=== PATIENT | female | born 1985 | race Caucasian/White ===

== ENCOUNTER → 2016-10-06 | Outpatient (CLI) | payer BC ==
[~2016-10-06] MED LIST: DOCO1CAP10 PO; GLC/500 PO; PRENTAB26 PO
== END | disposition home or self-care (01) ==
LOC: C.LAB 07:04
PROVIDERS: ATTEND Obstetrics & Gynecology
DX: Z32.00 Encounter for pregnancy test, result unknown (principal)

== ENCOUNTER → 2016-10-08 | Outpatient (CLI) | payer BC | END | disposition home or self-care (01) | LOC: C.LAB 07:10 | PROVIDERS: ATTEND Obstetrics & Gynecology | DX: O09.00 Supervision of pregnancy with history of infertility, unspecified trimester (principal) ==

== ENCOUNTER 2016-10-29 19:05 | Emergency (ER) | payer BC, OTHER ==
[~2016-10-29] VITALS: Ht 160 cm; Wt 85.0 kg
[~2016-10-29 19:05] MED LIST changes: -DOCO1CAP10 PO; -GLC/500 PO
[2016-10-29 19:11] VITALS: Ht 160 cm; Wt 85.0 kg
[2016-10-29] MEDS ORDERED: GLC/500 PO (19:23)
[2016-10-29] MEDS ORDERED: DOCO1CAP10 PO (19:24)
[2016-10-29] MEDS ORDERED: SODIUM CHLORIDE 0.9% 1000ML 500 ML IV STA (19:37)
[2016-10-29] MEDS ORDERED: SODIUM CHLORIDE 0.9% 1000ML 1,000 ML IV STA (19:37)
[2016-10-29] MEDS ORDERED: OPTIRAY 320 IV PRN (19:45)
[2016-10-29 20:00] VITALS: O2SAT 100
--- NOTE | 2016-10-29 20:04 | EMERGENCY ROOM VISIT NOTE ---
History Report prepared by Saran: Madie Teague Under the Supervision of: Dr. Gustavo Werner M.D. First contact with patient: 19:24 Chief Complaint: CHEST PAIN Stated Complaint: CHEST PAIN,NUMB LIPS,ARMS,TIGHT THROAT History of Present Illness The patient is a 31 year old female who presents to the Emergency Room with complaints of resolved mid-right chest pain occurring about 5 hours ago. She had the onset of her pain while sitting at her desk at work. When she returned home, she had an onset of mid-right back pain. She describes it to be a shooting pain from her chest. The pain lasted for about 15 minutes. She then had an onset of dry mouth, slurred speech, lip numbness, tachycardia, and right sided numbness. The right sided numbness lasted for about 10 minutes. The patient currently denies any pain. She currently complains of lip numbness, right sided numbness of tongue, and weakness in her right side of her body. She has been at baseline for the past few days. The patient is currently 2 months . This is her second . She has one child. She returned from [facility] about a week ago. She denies fever, headache, shortness of breath, vomiting, urinary symptoms, or any other complaints. She denies any history of heart disease, lung disease, and blood clots. She denies any family history of blood clots. Source of History: patient Onset: about 5 hours ago Position: chest (mid-right) Symptom Intensity: No pain Quality: other (shooting pain) Timing: resolved Associated Symptoms: + back pain, + numbness, + weakness, No SOB, No fevers , No headache, No urinary symptoms, No vomiting Review of Systems See HPI for pertinent positives & negatives. A total of 10 systems reviewed and were otherwise negative. Past Medical & Surgical Medical Problems: (1) 39 weeks gestation of (2) Chronic hypertension in obstetric context in third trimester (3) Left arm pain (4) Family History Patient reports no known family medical history. Social History Smoking Status: Never Smoker Marital Status: Occupation Status: employed Current/Historical Medications Scheduled Docosahexaenoic Acid (Dha), 200 MG PO DAILY Metformin Hcl (Glucophage), 500 MG PO TID Multivit/Min/Iron/Fol Ac/Pren ( Vitamin), 1 TAB PO DAILY Allergies Coded Allergies: No Known Allergies (Unverified , 10/29/16) Physical Exam Vital Signs Date Time Temp Pulse Resp B/P Pulse Ox O2 Delivery O2 Flow Rate FiO2 10/29/16 21:48 86 20 108/59 99 Room Air 10/29/16 20:00 100 Room Air 10/29/16 20:00 110 10/29/16 20:00 100 Room Air 10/29/16 19:11 120 16 135/75 100 Room Air Physical Exam GENERAL: Patient is in no acute distress. Slightly anxious. HEENT: No acute trauma, normocephalic atraumatic, mucous membranes moist, no nasal congestion, no scleral icterus. NECK: No stridor, no adenopathy, no meningismus, trachea is midline. Equal carotid upstrokes bilaterally. LUNGS: Clear to auscultation bilaterally, no wheeze, no rhonchi, breath sounds equal. HEART: Tachycardiac with a regular rhythm, no murmurs. ABDOMEN: Soft, nontender, bowel sounds positive, no hernias, no peritonitis. EXTREMITIES: No cyanosis or edema, full range of motion of all the joints without pain or difficulty, no signs for acute trauma. Equal and strong radial pulses bilaterally. NEUROLOGIC: Oriented x 3, no acute motor or sensory deficits, no focal weakness. SKIN: No rash, no jaundice, no diaphoresis. Medical Decision & Procedures ER Provider Diagnostic Interpretation: CT and US results as stated below per my review and radiologist interpretation: CT ANGIOGRAM OF THE CHEST CLINICAL HISTORY: Chest pain, leg swelling, recent car travel, possible DVT COMPARISON STUDY: No previous studies for comparison. TECHNIQUE: Following the IV administration of 92 mL of Optiray-320, CT angiogram of the thorax was performed from the thoracic inlet to the lung bases utilizing the pulmonary embolus protocol. Images are reviewed in the axial, sagittal, and coronal planes. IV contrast was administered without complication. MIP imaging was performed. CT DOSE: 441.90 mGy.cm FINDINGS: No pathologically enlarged axillary mediastinal or hilar lymph nodes were visualized. There was no evidence of thoracic aortic dilatation. There is slightly suboptimal pulmonary arterial opacification. There are no filling defects to indicate acute pulmonary embolism. No pleural effusions are visualized. There is respiratory motion artifact. There is no evidence of focal pulmonary consolidation. IMPRESSION: 1. Technically limited study secondary to respiratory motion artifact and slightly suboptimal pulmonary opacification. 2. No pulmonary emboli identified 3. No evidence of focal pulmonary consolidation Electronically signed by: Fortunato Houston M.D. 10/29/2016 9:32 PM Dictated Date/Time: 10/29/2016 9:28 PM ULTRASOUND VENOUS DOPPLER LWR EXT BILA CLINICAL HISTORY: Leg swelling. Recent car travel COMPARISON STUDY: No previous studies for comparison. FINDINGS: Real-time and color flow Doppler imaging were performed. Flow was seen within the femoral, popliteal and calf veins with no intraluminal thrombus demonstrated. The saphenous vein is patent. IMPRESSION: No evidence of lower extremity DVT. Electronically signed by: Fortunato Houston M.D. 10/29/2016 9:29 PM Dictated Date/Time: 10/29/2016 9:27 PM Laboratory Results 10/29/16 20:02 10/29/16 20:02 Test 10/29/16 20:02 10/29/16 20:12 Red Blood Count 4.13 M/uL (4.2-5.4) Mean Corpuscular Volume 88.6 fL (80-100) Mean Corpuscular Hemoglobin 30.0 pg (25-34) Mean Corpuscular Hemoglobin Concent 33.9 g/dl (32-36) RDW Standard Deviation 42.8 fL (36.4-46.3) RDW Coefficient of Variation 13.3 % (11.5-14.5) Mean Platelet Volume 9.7 fL (7.4-10.4) Prothrombin Time 9.8 SECONDS (9.0-12.0) Prothromb Time International Ratio 0.9 (0.9-1.1) Activated Partial Thromboplast Time 27.3 SECONDS (21.0-31.0) Partial Thromboplastin Ratio 1.1 Anion Gap 12.0 mmol/L (3-11) Est Creatinine Clear Calc Drug Dose 111.7 ml/min Estimated GFR () 123.4 Estimated GFR (Non- 106.4 BUN/Creatinine Ratio 12.8 (10-20) Calcium Level 9.1 mg/dl (8.5-10.1) Total Bilirubin 0.2 mg/dl (0.2-1) Aspartate Amino Transf (AST/SGOT) 15 U/L (15-37) Alanine Aminotransferase (ALT/SGPT) 33 U/L (12-78) Alkaline Phosphatase 85 U/L (45-117) Total Protein 7.7 gm/dl (6.4-8.2) Albumin 3.9 gm/dl (3.4-5.0) Globulin 3.8 gm/dl (2.5-4.0) Albumin/Globulin Ratio 1.0 (0.9-2) Bedside Troponin I 0.000 ng/ml (0-0.045) Laboratory results reviewed by me. Medications Administered Medications (Trade) Dose Ordered Sig/Adama Route Start Time Stop Time Status Last Admin Dose Admin Sodium Chloride (Nss 1000ml) 500 ml @ 999 mls/hr Q31M STAT IV 10/29/16 19:37 10/29/16 20:07 DC 10/29/16 21:45 999 MLS/HR ECG Indication: chest pain Rate (beats per minute): 125 Rhythm: sinus tachycardia Findings: no acute ischemic change, no ectopy, other (Nonspecific diffuse ST changes) ED Course 1923: The patient was evaluated in room C11B. A complete history and physical exam was performed. 1936: Sodium Chloride 1000 ml @ 200 mls/hr IV, Sodium Chloride 500 ml @ 999 mls/ hr IV 2156: Reevaluated the patient. Discussed results and discharge instructions: She verbalized understanding and agreement. The patient is ready for discharge. Medical Decision Differential diagnosis includes but is not limited to PE or aortic dissection, DVT, musculoskeletal pain, UT, dysrhythmia, pneumothorax, pneumonia, anxiety. There is a mild leukocytosis, likely consistent with just her . No concerning anemia. No significant electrolyte abnormality, kidney failure or hepatitis. EKG shows a sinus tachycardia, no acute ischemia. Cardiac enzyme testing 1 is not suggestive of acute cardiac injury. Chest CT shows no PE, no evidence for aortic dissection. Bilateral lower extremity ultrasound does not show evidence for DVT. There was no coagulopathy. The patient presents with right-sided chest pain. She is , she was on a recent plane trip, she was tachycardic upon arrival. I was concerned for PE. The patient received IV saline, she has done well. Her heart rate has normalized, she feels improved, she's had no further discomfort or symptoms. I cannot really explain the transient right-sided numbness, she was anxious and upset and the numbness may have been from anxiety. She has a normal neurologic exam, no focal neurologic deficits. There is no evidence for vascular compromise. She is being discharged to return for worsening symptoms. The chest pain was likely musculoskeletal. Of note, I talked to the patient at length about the risks and benefits of a chest CT during . She understands. Given the concerns for PE, given her risk factors, the chest CT was felt warranted. She agreed. Impression Primary Impression: Right-sided chest pain Additional Impression: Scribe Attestation The scribe's documentation has been prepared under my direction and personally reviewed by me in its entirety. I confirm that the note above accurately reflects all work, treatment, procedures, and medical decision making performed by me. Departure Information Dispostion Home / Self-Care Referrals No Doctor, Assigned (PCP) Forms HOME CARE DOCUMENTATION FORM, IMPORTANT VISIT INFORMATION Patient Instructions My [facility] Additional Instructions stay well hydrated follow with compensation specialist return for worsening symptoms as we discussed lab testing, ECG, leg ultrasound and chest CT scan were all ok Problem Qualifiers
[2016-10-29 20:16] LABS: HEMATOCRIT 36.6 % (37-47); MEAN CELL VOLUME 88.6 fL (80-100); MEAN CORPUSCULAR HGB CONC 33.9 g/dl (32-36); MEAN PLATELET VOLUME 9.7 fL (7.4-10.4); PLATELET COUNT 346 K/uL (130-400); RED BLOOD COUNT 4.13 M/uL (4.2-5.4)
[2016-10-29 20:35] LABS: BUN/CREATININE RATIO 12.8 (10-20); CALCIUM 9.1 mg/dl (8.5-10.1); CREATININE 0.74 mg/dl (0.60-1.20); INR 0.9 (0.9-1.1); PARTIAL THROMBOPLASTIN RATIO 1.1; POTASSIUM 3.7 mmol/L (3.5-5.1); PROTHROMBIN TIME (PATIENT) 9.8 SECONDS (9.0-12.0)
--- NOTE | 2016-10-29 21:30 | DIAGNOSTIC IMAGING REPORT ---
ULTRASOUND VENOUS DOPPLER LWR EXT BILA CLINICAL HISTORY: Leg swelling. Recent car travel COMPARISON STUDY: No previous studies for comparison. FINDINGS: Real-time and color flow Doppler imaging were performed. Flow was seen within the femoral, popliteal and calf veins with no intraluminal thrombus demonstrated. The saphenous vein is patent. IMPRESSION: No evidence of lower extremity DVT. Electronically signed by: Fortunato Houston M.D. 10/29/2016 9:29 PM Dictated Date/Time: 10/29/2016 9:27 PM
--- NOTE | 2016-10-29 21:34 | DIAGNOSTIC IMAGING REPORT ---
CT ANGIOGRAM OF THE CHEST CLINICAL HISTORY: Chest pain, leg swelling, recent car travel, possible DVT COMPARISON STUDY: No previous studies for comparison. TECHNIQUE: Following the IV administration of 92 mL of Optiray-320, CT angiogram of the thorax was performed from the thoracic inlet to the lung bases utilizing the pulmonary embolus protocol. Images are reviewed in the axial, sagittal, and coronal planes. IV contrast was administered without complication. MIP imaging was performed. CT DOSE: 441.90 mGy.cm FINDINGS: No pathologically enlarged axillary mediastinal or hilar lymph nodes were visualized. There was no evidence of thoracic aortic dilatation. There is slightly suboptimal pulmonary arterial opacification. There are no filling defects to indicate acute pulmonary embolism. No pleural effusions are visualized. There is respiratory motion artifact. There is no evidence of focal pulmonary consolidation. IMPRESSION: 1. Technically limited study secondary to respiratory motion artifact and slightly suboptimal pulmonary opacification. 2. No pulmonary emboli identified 3. No evidence of focal pulmonary consolidation Electronically signed by: Fortunato Houston M.D. 10/29/2016 9:32 PM Dictated Date/Time: 10/29/2016 9:28 PM
[2016-10-29 21:48] VITALS: BP 108/59; PULSE 86; O2SAT 99
== END 2016-10-29 22:15 | disposition home or self-care (01) ==
LOC: C.EDB 19:06 → C.EDC 22:15
DX: O26.891 Other specified pregnancy related conditions, first trimester (principal); R07.9 Chest pain, unspecified; Z3A.08 8 weeks gestation of pregnancy; Z79.899 Other long term (current) drug therapy

== ENCOUNTER → 2016-11-06 | Outpatient (CLI) | payer BC ==
[~2016-11-06] MED LIST changes: +DOCO1CAP10 PO; +GLC/500 PO
[2016-11-06 18:43] LABS: URINE APPEARANCE CLEAR (CLEAR); URINE BILIRUBIN NEG (NEG); URINE COLOR YELLOW; URINE NITRITE NEG (NEG); URINE PH 5.5 (4.5-7.5); URINE SPECIFIC GRAVITY 1.032 (1.000-1.030); UROBILINOGEN NEG (NEG)
[2016-11-06 18:45] LABS: MANUAL MICROSCOPIC REQUIRED? NO; REVIEW REQ? NO
[2016-11-09 21:14] LABS: CHLAMYDIA TRACH RNA*** NOT DETECTED (NOT DETECTED); GC (NEIS GONORRHOEAE)RNA** NOT DETECTED (NOT DETECTED)
== END | disposition home or self-care (01) ==
LOC: C.LABSPEC 16:11
PROVIDERS: ATTEND Obstetrics & Gynecology
DX: O09.01 Supervision of pregnancy with history of infertility, first trimester (principal)

== ENCOUNTER → 2016-11-10 | Outpatient (CLI) | payer BC ==
[2016-11-10 09:39] LABS: BASO % 0.5 %; BASO ABS # 0.05 K/uL (0-0.2); COMPLETE YES; EOS % 1.4 %; HEMATOCRIT 38.1 % (37-47); IG% 0.2 %; LYMPH % 23.6 %; LYMPH ABS # 2.19 K/uL (1.2-3.4); MEAN CELL VOLUME 90.3 fL (80-100); MEAN CORPUSCULAR HEMOGLOBIN 30.3 pg (25-34); MEAN CORPUSCULAR HGB CONC 33.6 g/dl (32-36); MEAN PLATELET VOLUME 10.4 fL (7.4-10.4); MONO % 7.4 %; NEUT % 66.9 %; PLATELET COUNT 330 K/uL (130-400); RED BLOOD COUNT 4.22 M/uL (4.2-5.4); WHITE BLOOD COUNT 9.27 K/uL (4.8-10.8)
[2016-11-10 11:42] LABS: CREATININE 0.72 mg/dl (0.6-1.2)
== END | disposition home or self-care (01) ==
LOC: C.LAB 07:02
PROVIDERS: ATTEND Obstetrics & Gynecology
DX: O09.00 Supervision of pregnancy with history of infertility, unspecified trimester (principal)

== ENCOUNTER → 2016-12-31 | Outpatient (CLI) | payer BC ==
[2016-12-31 14:26] LABS: GTGD 50 Grams
[2017-01-05 08:58] LABS: AFP CONCENTRATION 24.8 NG/ML; AFP MULTIPLE OF MEDIAN 0.84; AFPTS GESTATIONAL AGE 16.4 WEEKS; AFPTS INSULIN DEP DIABETIC? NO; AFPTS MATERNAL WT 190 LBS; ALPHA-FETOPROTEIN RACE CAUCASIAN=W; ESTRIOL MULTIPLE OF MEDIAN 0.92; INHIBIN A 198 PG/ML; INHIBIN A MOM 1.32; REPEAT SAMPLE? NO; hCG MULTIPLE OF MEDIAN 1.94
[2017-01-08 15:09] LABS: HISTORY OF NTD NO
== END | disposition home or self-care (01) ==
LOC: C.LAB1850 12:20
PROVIDERS: ATTEND Obstetrics & Gynecology
DX: O09.01 Supervision of pregnancy with history of infertility, first trimester (principal); O10.019 Pre-existing essential hypertension complicating pregnancy, unspecified trimester; Z3A.00 Weeks of gestation of pregnancy not specified

== ENCOUNTER → 2017-01-15 | Outpatient (CLI) | payer BC | END | disposition home or self-care (01) | LOC: C.LAB 06:53 | PROVIDERS: ATTEND Obstetrics & Gynecology | DX: O28.1 Abnormal biochemical finding on antenatal screening of mother (principal); Z3A.00 Weeks of gestation of pregnancy not specified ==

== ENCOUNTER → 2017-03-29 | Outpatient (CLI) | payer BC ==
[2017-03-29 09:35] LABS: HEMATOCRIT 36.5 % (37-47)
[2017-03-29 09:57] LABS: URINE TOTAL PROTEIN 6.5 mg/dl (0-11.9)
[2017-03-29 10:39] LABS: CREATININE 0.57 mg/dl (0.6-1.2)
== END | disposition home or self-care (01) ==
LOC: C.LAB 07:00
PROVIDERS: ATTEND Obstetrics & Gynecology
DX: O10.019 Pre-existing essential hypertension complicating pregnancy, unspecified trimester (principal); Z29.13 Encounter for prophylactic Rho(D) immune globulin; Z3A.00 Weeks of gestation of pregnancy not specified

== ENCOUNTER → 2017-04-01 | Outpatient (CLI) | payer BC ==
[2017-04-01 18:47] LABS: URINE APPEARANCE TURBID (CLEAR); URINE BILIRUBIN NEG (NEG); URINE COLOR DK YELLOW; URINE EPITHELIAL CELL AUTO >30 /lpf (0-5); URINE NITRITE NEG (NEG); URINE SPECIFIC GRAVITY 1.033 (1.000-1.030); UROBILINOGEN NEG (NEG)
[2017-04-01 18:51] LABS: MANUAL MICROSCOPIC REQUIRED? NO; REVIEW REQ? NO
== END | disposition home or self-care (01) ==
LOC: C.LABSPEC 17:47
PROVIDERS: ATTEND Obstetrics & Gynecology
DX: Z29.13 Encounter for prophylactic Rho(D) immune globulin (principal); O09.02 Supervision of pregnancy with history of infertility, second trimester

== ENCOUNTER → 2017-05-20 | Outpatient (CLI) | payer BC | END | disposition home or self-care (01) | LOC: C.LABSPEC 17:41 | PROVIDERS: ATTEND Obstetrics & Gynecology | DX: O09.03 Supervision of pregnancy with history of infertility, third trimester (principal) ==

== ENCOUNTER 2017-06-07 20:41 | Inpatient (IN) | payer BC ==
[~2017-06-07] VITALS: Ht 160 cm; Wt 90.9 kg
[2017-06-07] MEDS ORDERED: OXYTOCIN 30 UNITS/500ML NSS IV ONE (20:48)
[2017-06-07] MEDS ORDERED: OXYTOCIN INJ 20 UNITS in LACTATED RINGER'S 1000ML 1,000 ML IV SCH (21:05)
[2017-06-07] MEDS ORDERED: SUPERCREAM 0.870 % 15GM JAR EXT PRN (21:15)
[2017-06-07] MEDS ORDERED: HYDROCORTISONE ACETATE 25 MG SUPP PR PRN (21:15)
[2017-06-07] MEDS ORDERED: ACETAMINOPHEN 325 MG TAB PO PRN (21:15)
[2017-06-07] MEDS ORDERED: OXYTOCIN 30 UNITS/500ML NSS IV PRN (21:15)
[2017-06-07] MEDS ORDERED: ACETAMINOPHEN/CODEINE 300/30MG TAB PO PRN ×2 (21:15)
[2017-06-07] MEDS ORDERED: BENZOCAINE 20% AER SPR 82.5 GM CAN EXT PRN (21:15)
[2017-06-07] MEDS ORDERED: DIPHTHERIA/TETANUS/PERTUSSIS 0.5 ML SYR/VIAL IM. ONE (21:15)
[2017-06-07] MEDS ORDERED: LANOLIN OINT EXT PRN ×2 (21:15)
--- NOTE | 2017-06-07 21:17 | Vaginal Delivery Summary ---
Vaginal Delivery Summary 32-year-old 2 para 1001 at 39 weeks estimated gestational age with an EDC of 06/14/2017 who presents labor and delivery in active labor and complete dilatation. The patient reported rupture of membranes possible 45 minutes ago. Upon her arrival she was unable to stand easily and had the urge to push. The patient's course is complicated by benign essential hypertension, history of infertility and Rh- blood type. 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 Shoulders and body delivered with ease. vigorous and cried at and nose and mouth were bulb suctioned. At 30 seconds of life the cord was clamped and the infant was placed on maternal abdomen. The cord was then doubly clamped and cut. Cord gases were obtained. Cord blood was obtained. Placenta was delivered spontaneously and intact, 3 vessel cord. Hemostasis achieved with dilute Pitocin and uterine massage. Laceration repaired in usual fashion using 3-0 Vicryl after 1% local lidocaine anesthesia. EBL 300 cc's. Mother and baby stable in recovery. Assessment: term normal delivery Plan: routine care. Rhogam evaluation. Labs.
[2017-06-07 21:36] LABS: HEMATOCRIT 41.8 % (37-47); MEAN CELL VOLUME 91.7 fL (80-100); MEAN CORPUSCULAR HEMOGLOBIN 30.7 pg (25-34); MEAN CORPUSCULAR HGB CONC 33.5 g/dl (32-36); MEAN PLATELET VOLUME 10.5 fL (7.4-10.4); PLATELET COUNT 186 K/uL (130-400); RED BLOOD COUNT 4.56 M/uL (4.2-5.4)
[2017-06-07 21:52] VITALS: Ht 160 cm; Wt 90.9 kg
[2017-06-07] MEDS: IBUPROFEN 600 MG TAB PO PRN (22:46)
[2017-06-07 23:50] VITALS: BP 140/81; PULSE 84; TEMP 36.4
[2017-06-08] MEDS: IBUPROFEN 600 MG TAB PO PRN ×5 (02:22→19:47)
[2017-06-08 03:40] VITALS: BP 117/75; PULSE 86; TEMP 37.1
--- NOTE | 2017-06-08 06:57 | Progress Note ---
Subjective Jun 08, 2017. Subjective conversation w/ patient, physical exam, chart review, lab review Ambulation: ambulating normally Voiding: no voiding problems Passing Gas: Yes Diet Tolerance: Regular Diet Lochia: Moderate Feeding Type: Bottle Feeding Pain: CONTROLLED Review of Systems Respiratory: No shortness of breath Cardiac: No chest pain Abdomen: No nausea, No vomiting Female : No dysuria Objective Vital Signs Date Time Temp Pulse Resp B/P (MAP) Pulse Ox O2 Delivery O2 Flow Rate FiO2 06/08/17 03:40 37.1 86 18 117/75 (89) Room Air 06/07/17 23:50 Room Air 06/07/17 23:50 36.4 84 18 140/81 (100) Room Air Physical Exam General Appearance: WELL-APPEARING, WD/WN, NO APPARENT DISTRESS Respiratory/Chest: lungs clear, normal breath sounds Cardiovascular: regular rate, rhythm Abdomen: normal bowel sounds, soft Fundus: Firm, Tender (APPROPRIATELY TENDER), Relation to Umbilicus (AT LEVEL OF U) Extremities: no calf tenderness Laboratory Results Last 24 Hours Test 06/07/17 21:19 White Blood Count 12.20 K/uL Red Blood Count 4.56 M/uL Hemoglobin 14.0 g/dL Hematocrit 41.8 % Mean Corpuscular Volume 91.7 fL Mean Corpuscular Hemoglobin 30.7 pg Mean Corpuscular Hemoglobin Concent 33.5 g/dl RDW Standard Deviation 48.3 fL RDW Coefficient of Variation 14.3 % Platelet Count 186 K/uL Mean Platelet Volume 10.5 fL Assessment and Plan Problem List Medical Problems: (1) Status: Acute (2) Right-sided chest pain Status: Acute Post- Day#: 1 Continue Routine Care: - Vital Signs stable - Hemoglobin Reviewed. 14.0 (06/07/17) - Blood Type: O -, GBS-, Rubella Immune. - Pt is doing well clinically. - Encourage Ambulation, Monitor and Control pain with Motrin PRN, Resume regular diet, Monitor Lochia - Continue routine post care. SANYA LOVE PGY1 FM RESIDENT Resident Physician Supervision Note: I was present with Dr. Love during the history and exam. I discussed the case with the resident and agree with the findings and plan as documented in the note. Any exceptions or clarifications are listed here: Doing well. FF at 1down after voiding. Routine care. Rhogam evaluation. Documented By: Lisa Baez Resident Tracking Resident Involvement: Resident Care Provided Care Provided: OB Delivery
--- NOTE | 2017-06-08 06:58 | Discharge Instructions ---
Discharge Instructions Date of Service Jun 08, 2017. Admission Reason for Admission: Check Labor Discharge Discharge Diagnosis / Problem: VAGINAL DELIVERY Discharge Goals Goal(s): Routine recovery after delivery Medications Continue Dispensed Medications: supercream, dermaplast, tucks, lansinoh Activity Recommendations Activity Limitations: per Instructions/Follow-up section . Instructions / Follow-Up Instructions / Follow-Up ACTIVITY RECOMMENDATIONS: * Gradual return to full activity over the next 2-3 weeks. * No lifting - nothing heavier than baby over the next 2-3 weeks. * Do not engage in vigorous exercise, sexual activity or sports until cleared by your physician. * Do not drive or operate any motorized equipment until cleared by your physician. * You may shower/bathe daily. MEDICATIONS: For discomfort or pain, you may use Acetaminophen (Tylenol), Ibuprofen (Advil), or Naproxen (Aleve) following the package directions. For constipation you may use Colace following the package directions. BREAST CARE: If you are not breast feeding: * Wear a supportive bra 24 hours a day for one to two weeks. * Avoid stimulating your breasts and nipples as much as possible during the first few weeks after delivery. * When taking a shower, have the warm water hit your back, not breasts. * When your breasts feel full, apply ice packs. Usually three to four times a day helps ease the discomfort. * Take a mild pain medication (Tylenol / Motrin) when you are uncomfortable. If breast feeding: * Use breast milk to lubricate nipples. Lansinoh cream may be used for sore nipples. You do not need to remove cream prior to breast feeding. If using a different brand of cream, check the label for directions regarding removal of cream prior to nursing. * Wear a supportive bra. * If having problems with breasts or breast feeding, call a client service consultant or your health care provider. EPISIOTOMY CARE: After delivery, if you have an episiotomy (stitches), the following steps will ease discomfort and aid healing. * For the first 24 hours after delivery, place ice packs next to your episiotomy to help reduce swelling. * After the first 24 hour-period, sitz baths, either portable or in the tub, are suggested. A shower with a shower arm sprayed over the episiotomy may be comforting. * Rafia care should be done after each voiding and bowel movement. Squirt warm water from a plastic bottle over the perineum (region of the body between the anus and urinary opening) and pat dry. * Use Dermoplast to ease discomfort. Shake container. [place] directly over the episiotomy. Place a Tucks on a clean sanitary pad next to your episiotomy. SPECIAL CARE INSTRUCTIONS: When you are discharged from the hospital, it is important for you to follow the instructions listed below: * During the first week at home, you should be able to care for yourself and your baby. In addition, the usual light household activities are encouraged. * Limit your activities to the way you feel. Do not try to clean the house or move furniture. Be sensible. * If you actively engage in sports and have done so up until the time of your delivery, you may resume these activities as soon as you feel able. This may take up to one month or even longer. Use good judgment. * Continue to take your vitamins for at least six weeks after the of your baby. * Your diet need not be limited unless you were on a special diet before your delivery. Breast-feeding mothers need around 2500 calories per day and at least 64-80 ounces of fluid per day (8 to 10 glasses). * You should eat foods from the four major food groups. Crash diets or fad diets are to be avoided. Eating lean meats, fresh fruits and vegetables, low-fat dairy products, high fiber foods and a regular exercise program, will help you get back to your pre- weight without putting your health at risk. * Constipation is sometimes a problem after delivery. Take a mild laxative as needed. If breast feeding, Milk of Magnesia is acceptable to use. You may use a suppository or Fleets enema if no episiotomy. * A daily shower or tub bath is suggested. Be sure to thoroughly and gently dry the perineum. * A bloody vaginal discharge will usually continue until around four weeks post . A small amount of bleeding may continue for as long as six weeks. Vaginal discharge changes from the bright red bleeding after delivery to pink then brownish and finally yellowish-pink before becoming white and disappearing. * Bleeding may increase with activity. Your first period may come in 4-8 weeks. If you are breast feeding, your period may be delayed even longer. * Aynor (sex) can begin whenever both you and your partner feel comfortable and do not have any form of genital infection. It is recommended that you wait at least six weeks for internal and external healing to occur. If you have questions, please talk to your health care practitioner. A condom should be used to prevent infection and . * Foreplay, gentle intercourse and lubrication is very important the first several times to prevent pain. A water-based lubricant such as K-Y jelly or Astroglide may be used. * If you have RH negative blood and your baby is RH positive, you will receive RHOGAM by injection prior to discharge. The nurse will give you a card to keep with you that has the date and place that you received RHOGAM after delivery. * During your care, you had a Rubella screen done to check for the presence of rubella antibodies in your blood. If your test was negative, you will receive a Rubella vaccine prior to discharge. This vaccine may cause a fever, soreness at the injection site and flu-like symptoms. If these symptoms persist, notify your health care practitioner. is not advised for one month after a Rubella vaccine. * Verbalizes understanding of car seat law as reviewed with patient nursing. * Car Seat hand-out given and reviewed with patient by nursing. * Shaken baby information reviewed with patient by nursing. Call you doctor if: * Heavy bleeding (saturating several pads an hour) or passing clots the size of your fist. * A fever >101 degrees F (38.3 degrees C) on two occasions four hours apart and /or chills. * Unusual pain in the pelvic or vaginal areas. * "Baby Blues" lasting longer than two weeks. If you have any questions or concerns, call your health care practitioner at . FOLLOW UP VISIT: * Please call the office at to schedule a 6 week examination. It is important you keep this appointment. It is important for you to make arrangements for either yearly or twice yearly check-ups thereafter. Current Hospital Diet Patient's current hospital diet: Regular OB Diet Discharge Diet Recommended Diet: Regular Diet Pending Studies Studies pending at discharge: no Medical Emergencies . Who to Call and When: Medical Emergencies: If at any time you feel your situation is an emergency, please call 911 immediately. . Non-Emergent Contact Non-Emergency issues call your: Primary Care Provider . . "Provider Documentation" section prepared by Mirian Love. . VTE Core Measure Inpt VTE Proph given/why not?: Treatment not indicated
[2017-06-08 07:35] VITALS: BP 130/84; PULSE 91; TEMP 36.6; O2SAT 97
[2017-06-08] MEDS: DOCUSATE SODIUM 100 MG CAP PO SCH ×2 (08:17→19:47)
[2017-06-08 11:50] VITALS: BP 114/72; PULSE 86; TEMP 36.7; O2SAT 97
[2017-06-08 15:45] VITALS: BP 130/87; PULSE 86; TEMP 36.8; O2SAT 97
[2017-06-08 20:00] VITALS: BP 129/82; PULSE 84; TEMP 36.7
[2017-06-09] MEDS: IBUPROFEN 600 MG TAB PO PRN ×3 (00:29→10:02)
[2017-06-09 00:30] VITALS: BP 124/80; PULSE 69; TEMP 36.6
--- NOTE | 2017-06-09 07:01 | Progress Note ---
Subjective Jun 09, 2017. Subjective conversation w/ patient, physical exam, chart review, lab review Ambulation: ambulating normally Voiding: no voiding problems Passing Gas: Yes Diet Tolerance: Regular Diet Lochia: Moderate Feeding Type: Bottle Feeding Pain: CONTROLLED Review of Systems Respiratory: No shortness of breath Cardiac: No chest pain Abdomen: No nausea, No vomiting Female : No dysuria Objective Vital Signs Date Time Temp Pulse Resp B/P (MAP) Pulse Ox O2 Delivery O2 Flow Rate FiO2 06/09/17 00:30 36.6 69 18 124/80 (95) Room Air 06/09/17 00:30 Room Air 06/08/17 20:00 36.7 84 18 129/82 (98) Room Air 06/08/17 15:45 97 Room Air 06/08/17 15:45 36.8 86 18 130/87 (101) 97 Room Air 06/08/17 11:50 36.7 86 18 114/72 (86) 97 Room Air 06/08/17 07:35 36.6 91 18 130/84 (99) 97 Room Air 06/08/17 07:35 97 Room Air Physical Exam General Appearance: WELL-APPEARING, WD/WN, NO APPARENT DISTRESS Respiratory/Chest: lungs clear Cardiovascular: regular rate, rhythm Abdomen: normal bowel sounds, soft Fundus: Firm, Tender (APPROPRIATELY TENDER), Relation to Umbilicus (1 BELOW U) Extremities: no calf tenderness Assessment and Plan Problem List Medical Problems: (1) Status: Acute (2) Right-sided chest pain Status: Acute Post- Day#: 2 Continue Routine Care: - Vital Signs reviewed and WNL. - Blood Type: O-, GBS-, Rubella Immune. Baby Rh -, no rhogam indicated at this time. - Pt is doing well clinically. - Encourage Ambulation, Monitor and Control pain with Motrin PRN, Resume regular diet, Monitor Lochia - Pt counselled on discharge instructions SANYA LOVE PGY1 FM RESIDENT Resident Physician Supervision Note: I interviewed and examined the patient. Discussed with Dr. Love and agree with findings and plan as documented in the note. Any exceptions or clarifications are listed here: Doing well. PLan d/c. Instructions given. Documented By: Eli Soto Resident Tracking Resident Involvement: Resident Care Provided Care Provided: OB Delivery
[2017-06-09 07:14] VITALS: BP 120/77; PULSE 74; TEMP 36.7; O2SAT 97
[2017-06-09] MEDS: DOCUSATE SODIUM 100 MG CAP PO SCH (07:40)
[2017-06-09 12:55] VITALS: BP_DIAS 77; PULSE 74; TEMP 36.7
== END 2017-06-09 13:05 | disposition home or self-care (01) | DRG 774 ==
LOC: C.OPB 20:41 → C.LD 20:43 → C.OPB 21:05 → C.LD 21:05 → C.OBG 23:40
PROVIDERS: ADMIT Obstetrics & Gynecology; ATTEND Obstetrics & Gynecology
PROC: 0KQM0ZZ Repair Perineum Muscle, Open Approach (ICD-10-PCS; principal; 2017-06-07)
PROC: 10E0XZZ Delivery of Products of Conception, External Approach (ICD-10-PCS; principal; 2017-06-07)
DX: O10.013 Pre-existing essential hypertension complicating pregnancy, third trimester (principal); O36.0930 Maternal care for other rhesus isoimmunization, third trimester, not applicable or unspecified; O70.1 Second degree perineal laceration during delivery; O09.03 Supervision of pregnancy with history of infertility, third trimester; Z3A.39 39 weeks gestation of pregnancy; Z37.0 Single live birth

== ENCOUNTER 2020-01-10 07:25 | Inpatient (IN) ==
[2020-01-10] MEDS ORDERED: OXYTOCIN 30 UNITS/500 ML BAG IV PRN ×3 (07:57→21:02)
[2020-01-10 08:33] LABS: Hematocrit (blood only) 36.5 % (37-47); Mean Corpuscular Hemoglobin 29.9 pg (25-34); Mean Corpuscular Volume 90.8 fL (80-100); Mean Platelet Volume 10.7 fL (7.4-10.4); Platelet Count 199 K/uL (130-400); RDW Coefficient of Variation 14.1 % (11.5-14.5); RDW Standard Deviation 46.9 fL (36.4-46.3); Red Blood Count 4.02 M/uL (4.2-5.4); White Blood Count 9.58 K/uL (4.8-10.8)
[2020-01-10 08:35] LABS: Mean Corpuscular Hgb Conc 32.9 g/dL (32-36)
[2020-01-10] MEDS: LACTATED RINGER'S 1,000 ML IV PRN ×3 (09:17→19:11)
--- NOTE | 2020-01-10 12:08 | History & Physical Report ---
Date of Service January 10, 2020 Assessment & Plan (1) Encounter for induction of labor: IUP at 39 weeks for IOL because of precipitous delivery begin pitocin induction now plan to AROM - epidural analgesia anticipate vaginal History of Present Illness Chief Complaint: IOL Primary Care Provider: TRAVIS PCP Patient is a 34 yo white female EDC 01/14/20 who presents for IOL because of history of precipitous labor & delivery and unstable lie. The baby had been breech until last week. It verted to cephalic since then & is currently still head down. complicated by AMA - NST's have been regular. GBS negative O negative Allergies Allergy/AdvReac Type Severity Reaction Status Date / Time No Known Allergies Allergy Verified 01/09/20 10:58 Home Medications Home Medications Medication Instructions Recorded Confirmed Type folic acid 400 mcg PO DAILY 01/10/20 01/10/20 History vit-iron fum-folic ac 1 tab PO DAILY 01/10/20 01/10/20 History [ Vitamin] Patient History Medical History History of in vitro fertilization Varicella vaccine Surgical History History of colposcopy with cervical biopsy Social History Preferred Language: Pashto Beliefs That Will Affect Care: None marital status: marital status details: Gustavo Desai (36) [phone] Current Living Situation: Spouse Current Living Situation Comment: dogs, cats. Pt not changing cat litter. 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 @ [employer] Other Information That Helps Us Care for You: No Feels Safe at Home: Yes Safety Concerns: Feels Safe At This Time Smoking Status: Never smoker Hx Alcohol Use: No Hx Substance Use: No Review of Systems All systems reviewed & are unremarkable except as noted in HPI & below Physical Exam Constitutional: WD/WN, vitals as above Respiratory: normal respiratory effort, lungs clear to auscultation Cardiovascular: RRR, no murmur, no edema Gastrointestinal (Abdomen): normal bowel sounds, soft, nontender, no hepatosplenomegaly Psychiatric: A+Ox3, euthymic affect Genitourinary: OB Exam Abdomen: + vertex (by ultrasound this AM) Manual OB Exam: + cervical dilation fingertip, + cervical effacement 70% and + station high OB Exam Monitor Tracing: + external FHT monitor used, + external uterine monitor used, + category I and + normal FHT variability Results & Data Vital Signs (Past 12 Hours) Vital Signs Temp Pulse Resp BP 01/10/20 11:29 81 119/71 01/10/20 10:45 78 116/76 01/10/20 09:30 88 131/84 01/10/20 08:51 94 H 138/80 01/10/20 08:36 98.4 F 20 01/10/20 07:37 113 H 164/84 H 01/10/20 07:36 121 H 194/111 H Coding Level of Care Code None Diagnoses Encounter for induction of labor Z34.90
[2020-01-10] MEDS ORDERED: fentaNYL citrate 100 MCG/2 ML VIAL ONE (15:39)
[2020-01-10] MEDS ORDERED: ePHEDrine sulfate 50 MG/ML AMP ONE (15:39)
[2020-01-10] MEDS ORDERED: BUPIVACAINE 0.25% 30 ML VIAL ONE (15:39)
[2020-01-10] MEDS ORDERED: fentaNYL 2MCG/ML ROPIV 1.25MG/ML 100 ML BAG EPI ONE (15:40)
--- NOTE | 2020-01-10 16:00 | Anesthesiology Consultation ---
Date of Service January 10, 2020 Assessment & Plan Chart Review Chart Review: Acceptable Risk for Surgery, Patient NOT seen in Pre Admission Testing and Acceptable Risk for Labor Epidural Consults Requested none ASA ASA2 Proposed Anesthesia Anesthesia Type: General, Labor Epidural and CSE Risk / Benefits Reviewed With: PT / POA / Parent / Guardian, Accepts Plan and Informed Consent Obtained History Height/Weight Height: 5 ft 3 in Weight: 92.079 kg Allergies Allergy/AdvReac Type Severity Reaction Status Date / Time No Known Allergies Allergy Verified 01/09/20 10:58 Medications Home Medications Medication Instructions Recorded Confirmed Last Taken folic acid 400 mcg PO DAILY 01/10/20 01/10/20 01/09/20 21:00 vit-iron fum-folic ac 1 tab PO DAILY 01/10/20 01/10/20 01/09/20 21:00 [ Vitamin] Active Medications Generic Name Dose Route Start Last Admin Trade Name Freq PRN Reason Stop Dose Admin Lactated Ringer's 1,000 mls @ 125 mls/hr 01/10/20 07:57 01/10/20 15:49 Lr IV 01/12/20 07:56 999 mls/hr .Q8H PRN Administration L&D Protocol Protocol Oxytocin 30 units in 500 mls @ 15 mls/hr 01/10/20 07:57 01/10/20 14:44 Pitocin IV 01/12/20 07:56 0.9 units/hr .Q24H PRN 15 mls/hr Labor Induction/Augmentation Titration Protocol 0.9 UNITS/HR NPO Date Last Intake of Fluids: 01/10/20 Time Last Intake of Fluids: 14:00 Date Last Intake of Solids: 01/10/20 Time Last Intake of Solids: 07:00 Past Medical History Medical History History of in vitro fertilization Varicella vaccine Exercise / Class Metabolic Activity II 4-5 Yardwork/Stairs/Walk up hill Past Surgical History Surgical History History of colposcopy with cervical biopsy Past Anesthesia History No Hx of Anesthesia Complications and No Family Hx of Anesthesia Complications History of PONV No Hx of PONV and No Hx of Motion Sickness Social History Smoking Status: Never smoker Hx Alcohol Use: No Hx Substance Use: No substance use type: does not use Physical Exam Vital Signs Last Vital Signs Temp 36.9 C 01/10/20 08:36 Pulse 82 01/10/20 15:52 Resp 20 01/10/20 08:36 BP 143/86 H 01/10/20 14:43 Pulse Ox 99 01/10/20 15:52 Constitutional + obese ENMT Mouth: + small oral opening; no dentition abnormality Thyromental Distance: < 3.5 Finger Breadths Mallampati Class: II Neck normal visual inspection and trachea midline; neck extension not limited Respiratory normal respiratory effort Auscultation: lungs clear to auscultation bilaterally Cardiovascular Rate/Rhythm: regular rate and regular rhythm Heart Sounds: no murmur Vessels: no carotid bruit Musculoskeletal Spine: lumbar spine normal to inspection; normal cervical ROM Extremities: full ROM of extremities Neurologic moves all extremities Motor/Sensory: no sensory deficit Psychiatric Orientation: alert and oriented x 3 Testing Laboratory Results 01/10/20 08:06
[2020-01-10] MEDS ORDERED: NALOXONE HCL 0.4 MG/1 ML VIAL/CARP IV PRN (16:24)
[2020-01-10] MEDS ORDERED: ONDANSETRON INJ 2 MG/ML 2 ML VIAL IV PRN (16:24)
[2020-01-10] MEDS ORDERED: ePHEDrine sulfate 50 MG/ML AMP IV PRN (16:24)
[2020-01-10] MEDS ORDERED: fentaNYL 2MCG/ML ROPIV 1.25MG/ML 100 ML BAG EPI PRN (16:24)
[2020-01-10] MEDS ORDERED: DiphenhydrAMINE HCL 50 MG/ML VIAL IV PRN (16:24)
[2020-01-10] MEDS ORDERED: NALBUPHINE HCL INJ 10 MG/ML AMP IV PRN (16:24)
[2020-01-10] MEDS ORDERED: NALOXONE HCL 1 MG in SODIUM CHLORIDE 0.9% 1000ML 1,000 ML IV PRN (16:24)
[2020-01-10] MEDS ORDERED: PROMETHAZINE HCL 25 MG in SODIUM CHLORIDE 0.9% 50 ML IV PRN (16:24)
[2020-01-10] MEDS ORDERED: BENZOCAINE 20% AER SPR 82.5 GM CAN EXT PRN (21:02)
[2020-01-10] MEDS ORDERED: SUPERCREAM 0.870% 15 GM JAR EXT PRN (21:02)
[2020-01-10] MEDS ORDERED: DIPHTHERIA/TETANUS/PERTUSSIS 0.5 ML SYR/VIAL IM ONE (21:02)
[2020-01-10] MEDS ORDERED: bisacodyL 10 MG SUPP PR PRN (21:02)
[2020-01-10] MEDS ORDERED: ACETAMINOPHEN 325 MG TAB PO PRN (21:02)
[2020-01-10] MEDS ORDERED: OXYCODONE/ACETAMINOPHEN 5mg/325mg TAB PO PRN (21:02)
[2020-01-10] MEDS ORDERED: HYDROCORTISONE ACETATE 25 MG SUPP PR PRN (21:02)
--- NOTE | 2020-01-10 21:36 | Anesthesia Procedure Note ---
Date of Service January 10, 2020 Anesthesia Post Epidural Note Vital Signs Vital Signs: Temp Pulse Resp BP Pulse Ox 36.8 C 96 H 18 138/80 95 01/10/20 19:26 01/10/20 21:33 01/10/20 21:18 01/10/20 21:33 01/10/20 20:27 Notes Mental Status: alert / awake / arousable Nausea / Vomiting: adequately controlled Pain: adequately controlled Airway Patency, RR, SpO2: stable & adequate BP & HR: stable & adequate Hydration State: stable & adequate Neuraxial Anesthesia: was administered and sensory block is resolving Anesthetic Complications: no major complications apparent Epidural: Removed without complications and With tip intact
[2020-01-10] MEDS: DOCUSATE SODIUM 100 MG CAP PO SCH (22:16)
[2020-01-10] MEDS: IBUPROFEN 600 MG TAB PO PRN (22:30)
--- NOTE | 2020-01-11 01:33 | Delivery Summary ---
DATE OF OPERATION: 01/10/2020 The patient is a 34-year-old 3, para 2-0-0-2, white female, EDC of 01/14/2020 who presented for induction of labor because of a history of precipitous delivery and an unstable lie. The baby had been breech until last week, it verted spontaneously to a cephalic position and has been so for the last week. Presentation was confirmed as being vertex upon arrival in labor and delivery. Pitocin induction of labor was begun. She received effective epidural analgesia. Membranes ruptured spontaneously for clear fluid. She then progressed to full dilation and pushed effectively through 1 contraction for a viable female infant. After the was delivered, it was placed on the mother's abdomen for further attention and drying. Mouth and nasopharynx were suctioned on the mother's abdomen. The cord was clamped after 1 minute of life and was cut by the provider. The placenta was expressed intact with a 3-vessel cord. A first-degree vaginal laceration was bleeding and therefore repaired with 3-0 chromic in the usual fashion. Estimated blood loss was 100 mL. Mother and infant were doing well after delivery. bleeding was controlled with dilute Pitocin. I attest to the content of the Intraoperative Record and any orders documented therein. Any exception s are noted below.
[2020-01-11] MEDS: IBUPROFEN 600 MG TAB PO PRN ×5 (03:46→23:07)
[2020-01-11 06:35] LABS: Hematocrit (blood only) 38.1 % (37-47); Hemoglobin 12.5 g/dL (12.0-16.0); Mean Corpuscular Hgb Conc 32.8 g/dL (32-36); Mean Corpuscular Volume 91.4 fL (80-100); Mean Platelet Volume 10.7 fL (7.4-10.4); Platelet Count 176 K/uL (130-400); RDW Standard Deviation 47.4 fL (36.4-46.3); Red Blood Count 4.17 M/uL (4.2-5.4); White Blood Count 10.78 K/uL (4.8-10.8)
--- NOTE | 2020-01-11 08:00 | Obstetrical Progress Note ---
Date of Service January 11, 2020 Assessment & Plan (1) Encounter for care and examination after delivery: satisfactory progress continue current care plan Day #:: 1 Subjective Ambulation: ambulating normally Voiding: no voiding problems Passing Gas:: Yes Diet Tolerance:: regular diet Lochia:: Small Feeding Type:: breast feeding Physical Exam Constitutional WD/WN, vitals as above Psychiatric A+Ox3, euthymic affect Genitourinary OB Exam Abdomen: + fundal height Fundus: + firm and + relation to umbilicus (1 below U) Results & Data Vital Signs (Past 12 Hours) Vital Signs Temp Pulse Pulse Resp BP BP Pulse Ox 01/11/20 07:55 97.7 F 62 18 120/75 96 01/11/20 03:40 97.9 F 68 18 114/75 96 01/10/20 23:00 98.1 F 80 18 146/91 H 95 01/10/20 22:28 87 18 150/76 H 01/10/20 22:18 88 142/78 H 01/10/20 22:03 95 H 149/77 H 01/10/20 21:48 89 128/63 01/10/20 21:33 96 H 18 138/80 01/10/20 21:18 91 H 18 143/83 H 01/10/20 21:03 97 H 18 141/72 H 01/10/20 20:48 88 136/71 01/10/20 20:33 103 H 18 141/68 H 01/10/20 20:28 88 18 136/71 01/10/20 20:27 105 H 95 01/10/20 20:22 109 H 95 01/10/20 20:20 18 01/10/20 20:17 152 H 97 01/10/20 20:12 131 H 99 01/10/20 20:11 118 H 141/99 H 01/10/20 20:07 106 H 97 01/10/20 20:02 93 H 98 01/10/20 20:00 18
[2020-01-11] MEDS: PRENATAL VITAMIN 1 TAB PO SCH (08:14)
[2020-01-11] MEDS: DOCUSATE SODIUM 100 MG CAP PO SCH ×2 (08:14→19:34)
[2020-01-11] MEDS ORDERED: bisacodyL 5 MG TABEC PO SCH (20:00)
[2020-01-12 06:39] LABS: Hematocrit (blood only) 36.8 % (37-47)
--- NOTE | 2020-01-12 07:00 | Obstetrical Progress Note ---
Date of Service January 12, 2020 Assessment & Plan (1) Encounter for care and examination after delivery: stable, d/c home, f/u 6wks pp check, instructions reviewed. rh neg, but so is baby, no rhogam indicated. Subjective Ambulation: ambulating normally Voiding: no voiding problems Diet Tolerance:: regular diet Lochia:: Small Feeding Type:: bottle feeding milk has come in, binding. no other concerns. Physical Exam Constitutional WD/WN, vitals as above Respiratory normal respiratory effort, lungs clear to auscultation Cardiovascular Rate/Rhythm: regular rate and regular rhythm Gastrointestinal (Abdomen) Inspection/Auscultation: abdomen normal to inspection Percussion/Palpation: abdomen soft fundus firm 2 cm below umbilicus Musculoskeletal nt calves no edema Neurologic grossly normal Psychiatric A+Ox3, euthymic affect Results & Data Vital Signs (Past 12 Hours) Vital Signs Temp Pulse Resp BP Pulse Ox 01/11/20 23:10 97.7 F 71 14 112/72 96 01/11/20 19:40 98.2 F 75 14 117/82 96
[2020-01-12] MEDS: DOCUSATE SODIUM 100 MG CAP PO SCH (08:54)
[2020-01-12] MEDS: IBUPROFEN 600 MG TAB PO PRN (08:54)
[2020-01-12] MEDS: PRENATAL VITAMIN 1 TAB PO SCH (08:54)
== END 2020-01-12 12:40 | disposition home or self-care (01) | DRG 807 ==
LOC: 4S1 07:25 → 4S2 22:40